=== PATIENT | female | born 1985 | race Caucasian/White ===

== ENCOUNTER 2018-04-20 22:15 | Emergency (ER) | payer OTHER ==
[2018-04-20] MEDS ORDERED: METOCLOPRAMIDE 10 MG/2mL INJ ONE (22:48)
[2018-04-20] MEDS ORDERED: KETOROLAC 30 MG/ML INJ ONE (22:49)
[2018-04-20] MEDS ORDERED: DIPHENHYDRAMINE 50 MG/ML VIAL ONE (22:49)
[2018-04-20] MEDS ORDERED: NA CHLORIDE 0.9% 1,000 ML ONE (22:49)
--- NOTE | 2018-04-20 23:21 | EDPHYS ---
Physician Documentation [facility] Name: Bethany Erazo Age: 32 yrs Sex: Female : 1985 Arrival Date: 04/20/2018 Time: 22:17 Bed 8 Private MD: ED Physician Adriel Krueger HPI: 04/20 22:45 This 32 yrs old Female presents to ER via Ambulatory with complaints of pm1 Vomiting, Headache. 22:45 The patient complains of pain to the forehead, right islam and left islam. The pm1 patient describes the headache as aching, constant. Onset: The symptoms/episode began/occurred 3 day(s) ago. 22:45 Associated signs and symptoms: Pertinent positives: nausea, vomiting, Pertinent pm1 negatives: altered mental status, Photophobia rash, vision changes. Severity of symptoms: in the emergency department the pain is unchanged. Headache History: The patient has had previous headaches and this one is similar to previous episodes. The symptoms are alleviated by nothing. The patient has experienced similar episodes in the past, a few times, and the symptoms today are exactly the same, to previous migraines. 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 - Social history:: Smoking status: Patient/guardian denies using tobacco, Patient uses alcohol, occasionally. Patient/guardian denies using street drugs. - Ebola Screening: : No symptoms or risks identified at this time. ROS: 22:45 Constitutional: Negative for fever, chills, and weight loss, Eyes: Negative for injury, pm1 pain, redness, and discharge, ENT: Negative for injury, pain, and discharge, Neck: Negative for injury, pain, and swelling, Cardiovascular: Negative for chest pain, palpitations, and edema, Respiratory: Negative for shortness of breath, cough, wheezing, and pleuritic chest pain, Back: Negative for injury and pain, : Negative for injury, bleeding, discharge, and swelling, MS/Extremity: Negative for injury and deformity. 22:45 Skin: Negative for injury, rash, and discoloration. 22:45 Abdomen/GI: Positive for nausea and vomiting, Negative for abdominal pain, diarrhea. 22:45 Neuro: Positive for headache, Negative for numbness, tingling. Exam: 22:45 Constitutional: This is a well developed, well nourished patient who is awake, alert, pm1 and in no acute distress. Head/Face: Normocephalic, atraumatic. Eyes: Pupils equal round and reactive to light, extra-ocular motions intact. Lids and lashes normal. Conjunctiva and sclera are non-icteric and not injected. Cornea within normal limits. Periorbital areas with no swelling, redness, or edema. ENT: Nares patent. No nasal discharge, no septal abnormalities noted. Tympanic membranes are normal and external auditory canals are clear. Oropharynx with no redness, swelling, or masses, exudates, or evidence of obstruction, uvula midline. Mucous membranes moist. Neck: Trachea midline, no thyromegaly or masses palpated, and no cervical lymphadenopathy. Supple, full range of motion without nuchal rigidity, or vertebral point tenderness. No Meningismus. Chest/axilla: Normal chest wall appearance and motion. Nontender with no deformity. No lesions are appreciated. Cardiovascular: Regular rate and rhythm with a normal S1 and S2. No gallops, murmurs, or rubs. Normal PMI, no JVD. No pulse deficits. Respiratory: Lungs have equal breath sounds bilaterally, clear to auscultation and percussion. No rales, rhonchi or wheezes noted. No increased work of breathing, no retractions or nasal flaring. Abdomen/GI: Soft, non-tender, with normal bowel sounds. No distension or tympany. No guarding or rebound. No evidence of tenderness throughout. Back: No spinal tenderness. No costovertebral tenderness. Full range of motion. Skin: Warm, dry with normal turgor. Normal color with no rashes, no lesions, and no evidence of cellulitis. MS/ Extremity: Pulses equal, no cyanosis. Neurovascular intact. Full, normal range of motion. 22:45 Neuro: Orientation: is normal, Mentation: is normal, Cranial nerves: CN II- XII are normal as tested, Cerebellar function: normal finger to nose testing, heel to martins testing is normal, Motor: moves all fours, Gait: is steady, at a normal pace, without difficulty. Vital Signs: 22:39 BP 113 / 73; Pulse 91; Resp 16 S; Temp 99(O); Pulse Ox 100% on R/A; Weight 57.61 kg bb (R); Height 5 ft. 3 in. (160.02 cm) (R); Pain 10/10; 23:40 BP 95 / 58; Pulse 96; Resp 16; Pulse Ox 100% on R/A; Pain 0/10; bb 22:39 Body Mass Index 22.50 (57.61 kg, 160.02 cm) bb MDM: 22:23 Patient medically screened. pm1 23:19 Data reviewed: vital signs. Data interpreted: Pulse oximetry: on room air is 100 %. pm1 Interpretation: normal. Counseling: I had a detailed discussion with the patient and/or guardian regarding: the historical points, exam findings, and any diagnostic results supporting the discharge/admit diagnosis, the need for outpatient follow up, a neurologist, to return to the emergency department if symptoms worsen or persist or if there are any questions or concerns that arise at home. 23:19 ED course: Patient's headache is completely resolved 0. pm1 04/20 22:29 Order name: IV Saline Lock; Complete Time: 22:37 pm1 Administered Medications: 22:49 Drug: TORadol 30 mg Route: IVP; Site: right antecubital; ea 23:45 Follow up: Response: Marked relief of symptoms bb 22:50 Drug: Benadryl 25 mg Route: IVP; Site: right antecubital; ea 23:45 Follow up: Response: Marked relief of symptoms bb 22:50 Drug: Reglan 10 mg Route: IVP; Site: right antecubital; ea 23:45 Follow up: Response: Marked relief of symptoms bb 22:50 Drug: NS 0.9% 1000 ml Route: IV; Rate: 1000 ml; Site: right antecubital; ea 23:45 Follow up: IV Status: Completed infusion; IV Intake: 1000ml bb Disposition: 04/21 02:50 Co-signature as Attending Physician, Adriel Krueger MD. ma2 Disposition: 04/20/18 23:20 Discharged to Home. Impression: Migraine. - Condition is Stable. - Discharge Instructions: Migraine Headache. - Prescriptions for Fiorinal 50- 325-40 mg Oral Capsule - take 1 capsule by ORAL route every 4 hours As needed - not to exceed 6 capsules per day; 20 capsule. Zofran 4 mg Oral Tablet - take 1 tablet by ORAL route every 12 hours As needed; 20 tablet. - Medication Reconciliation Form, Thank You Letter, Prescription Opioid Use form. - Follow up: Emergency Department; When: As needed; Reason: Worsening of condition. Follow up: Bright Edwards MD; When: 2 - 3 days; Reason: Recheck today's complaints, Continuance of care, Re-evaluation by your physician. - Problem is new. - Symptoms have improved. Signatures: Jhoana Londono RN RN Perfecto Blake NP DEDICATED DRIVER pm1 Cari Tam RN RN Adriel Bernal MD MD ma2 Corrections: (The following items were deleted from the chart) 04/20 23:46 23:20 04/20/2018 23:20 Discharged to Home. Impression: Migraine. Condition is Stable. bb Forms are Medication Reconciliation Form, Thank You Letter, Antibiotic Education, Prescription Opioid Use. Follow up: Emergency Department; When: As needed; Reason: Worsening of condition. Follow up: Bright Edwards; When: 2 - 3 days; Reason: Recheck today's complaints, Continuance of care, Re-evaluation by your physician. Problem is new. Symptoms have improved. pm1
--- NOTE | 2018-04-20 23:21 | ER ---
Nurse's Notes [facility] Name: Bethany Erazo Age: 32 yrs Sex: Female : 1985 Arrival Date: 04/20/2018 Time: 22:17 Bed 8 Private MD: Diagnosis: Migraine Presentation: 04/20 22:30 Presenting complaint: Patient states: she is having a migraine x 3 days unable to hold bb anything down has had migraines in the past but never for 3 days. Transition of care: patient was not received from another setting of care. Onset of symptoms was April 17, 2018. Risk Assessment: Do you want to hurt yourself or someone else? Patient reports no desire to harm self or others. Initial Sepsis Screen: Does the patient meet any 2 criteria? No. Patient's initial sepsis screen is negative. Does the patient have a suspected source of infection? No. Patient's initial sepsis screen is negative. Care prior to arrival: None. 22:30 Method Of Arrival: Ambulatory bb 22:30 Acuity: MARKUS 3 bb Triage Assessment: 22:39 General: Appears in no apparent distress. uncomfortable, Behavior is calm, cooperative. bb Pain: Complains of pain in head Pain currently is 10 out of 10 on a pain scale. Pain began 2-3 days ago. Is continuous. Neuro: Level of Consciousness is awake, alert, obeys commands, Oriented to person, place, time, situation, Speech is normal. Cardiovascular: No deficits noted. Respiratory: Respiratory effort is even, unlabored, Respiratory pattern is regular. GI: Abdomen is non-distended, Reports vomiting. : No signs and/or symptoms were reported regarding the genitourinary system. Derm: Skin is pink, warm \T\ dry. Musculoskeletal: Circulation, motion, and sensation intact. 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 - Social history:: Smoking status: Patient/guardian denies using tobacco, Patient uses alcohol, occasionally. Patient/guardian denies using street drugs. - Ebola Screening: : No symptoms or risks identified at this time. Screenin:34 Abuse screen: Denies threats or abuse. Nutritional screening: No deficits noted. ea Tuberculosis screening: No symptoms or risk factors identified. Fall Risk Assessment: 22:41 Reassessment: No changes from previously documented assessment. see triage assessment. bb 23:43 Reassessment: Patient and/or family updated on plan of care and expected duration. Pain bb level reassessed. Patient is alert, oriented x 3, equal unlabored respirations, skin warm/dry/pink. pt verbalized understanding of and agrees to plan of care discharge instructions given pt ambulated with steady gait to exit accompanied by family Patient states feeling better. Patient states symptoms have improved. Vital Signs: 22:39 BP 113 / 73; Pulse 91; Resp 16 S; Temp 99(O); Pulse Ox 100% on R/A; Weight 57.61 kg bb (R); Height 5 ft. 3 in. (160.02 cm) (R); Pain 10/10; 23:40 BP 95 / 58; Pulse 96; Resp 16; Pulse Ox 100% on R/A; Pain 0/10; bb 22:39 Body Mass Index 22.50 (57.61 kg, 160.02 cm) bb ED Course: 22:17 Patient arrived in ED. al2 22:22 Perfecto Barajas NP is PHCP. pm1 22:22 Adriel Krueger MD is Attending Physician. pm1 22:30 Jhoana Londono, CUCO is Primary Nurse. bb 22:34 Inserted saline lock: 20 gauge in right antecubital area, using aseptic technique. ea Blood collected. 22:37 Triage completed. bb 22:39 Arm band placed on Patient placed in an exam room, on a stretcher, on pulse oximetry. bb Family accompanied patient. 22:41 Patient has correct armband on for positive identification. Call light in reach. Side bb rails up X 1. Adult w/ patient. Pulse ox on. NIBP on. Door closed. Lights dimmed. Warm blanket given. 23:20 Bright Edwards MD is Referral Physician. pm1 23:44 No provider procedures requiring assistance completed. IV discontinued, intact, bb bleeding controlled, No redness/swelling at site. Pressure dressing applied. Administered Medications: 22:49 Drug: TORadol 30 mg Route: IVP; Site: right antecubital; ea 23:45 Follow up: Response: Marked relief of symptoms bb 22:50 Drug: Benadryl 25 mg Route: IVP; Site: right antecubital; ea 23:45 Follow up: Response: Marked relief of symptoms bb 22:50 Drug: Reglan 10 mg Route: IVP; Site: right antecubital; ea 23:45 Follow up: Response: Marked relief of symptoms bb 22:50 Drug: NS 0.9% 1000 ml Route: IV; Rate: 1000 ml; Site: right antecubital; ea 23:45 Follow up: IV Status: Completed infusion; IV Intake: 1000ml bb Intake: :45 IV: 1000ml; Total: 1000ml. bb Outcome: 23:20 Discharge ordered by MD. pm1 23:46 Discharged to home ambulatory, with family. bb 23:46 Condition: improved 23:46 Discharge instructions given to patient, Instructed on discharge instructions, follow up and referral plans. medication usage, Demonstrated understanding of instructions, follow-up care, medications, Prescriptions given X 2. 23:46 Patient left the ED. bb Signatures: Jhoana Londono RN RN bb Marinas, Patrick, NIKKI GEOLOGICAL SURVEY FIELD ASSISTANT pm1 Cari Tam RN RN ea Love, Angelica al2
== END 2018-04-20 23:46 | disposition home or self-care (01) ==
LOC: ER 22:15
DX: G43.909 Migraine, unspecified, not intractable, without status migrainosus (principal)
CPT/HCPCS: 96361; 96374; 96375; 99284; J2765; J7030

== ENCOUNTER 2018-05-21 21:16 | Emergency (ER) | payer OTHER, SELFPAY ==
[2018-05-21] MEDS ORDERED: METOCLOPRAMIDE 10 MG/2mL INJ ONE (22:17)
[2018-05-21] MEDS ORDERED: KETOROLAC 30 MG/ML INJ ONE (22:17)
[2018-05-21] MEDS ORDERED: DIPHENHYDRAMINE 50 MG/ML VIAL ONE (22:17)
[2018-05-21] MEDS ORDERED: NA CHLORIDE 0.9% 1,000 ML ONE (22:17)
--- NOTE | 2018-05-21 23:44 | ER ---
Nurse's Notes [facility] Name: Bethany Erazo Age: 32 yrs Sex: Female : 1985 Arrival Date: 05/21/2018 Time: 21:19 Bed 6 Private MD: Teri Calderon K Diagnosis: Migraine Presentation: 05/21 21:37 Presenting complaint: Patient states: she is having a severe migraine since yesterday bb and is unable to hold anything down. Transition of care: patient was not received from another setting of care. Onset of symptoms was May 20, 2018. Risk Assessment: Do you want to hurt yourself or someone else? Patient reports no desire to harm self or others. Initial Sepsis Screen: Does the patient meet any 2 criteria? No. Patient's initial sepsis screen is negative. Does the patient have a suspected source of infection? No. Patient's initial sepsis screen is negative. Care prior to arrival: None. 21:37 Method Of Arrival: Ambulatory bb 21:37 Acuity: MARKUS 3 bb Triage Assessment: 21:47 Headache History: The patient has had previous headaches and this one is similar to jd3 previous episodes. Pain: Pain currently is 10 out of 10 on a pain scale. Pain began gradually. 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 - Social history:: Smoking status: Patient/guardian denies using tobacco, Patient uses alcohol, occasionally. Patient/guardian denies using street drugs. - Ebola Screening: : No symptoms or risks identified at this time. Screenin:47 Abuse screen: Denies threats or abuse. Nutritional screening: No deficits noted. jd3 Tuberculosis screening: No symptoms or risk factors identified. Fall Risk Ambulatory Aid- None/Bed Rest/Nurse Assist (0 pts). Gait- Normal/Bed Rest/Wheelchair (0 pts) Mental Status- Oriented to own ability (0 pts). Total Adams Fall Scale indicates No Risk (0-24 pts). Assessment: 21:46 General: Appears in no apparent distress. uncomfortable, Behavior is calm, cooperative, jd3 appropriate for age. Pain: Complains of pain in head Quality of pain is described as sharp, Also complains of nausea. Neuro: Level of Consciousness is awake, alert, obeys commands, Oriented to person, place, time, situation, Pupils are PERRLA. Cardiovascular: Capillary refill < 3 seconds Patient's skin is warm and dry. Respiratory: Airway is patent Respiratory effort is even, unlabored, Respiratory pattern is regular, symmetrical. GI: Abdomen is round non-distended, Reports nausea, vomiting. : No signs and/or symptoms were reported regarding the genitourinary system. EENT: No signs and/or symptoms were reported regarding the EENT system. Derm: Skin is intact, Skin is dry, Skin is normal, Skin temperature is warm. Musculoskeletal: Circulation, motion, and sensation intact. Range of motion: intact in all extremities. 23:50 Reassessment: Patient appears in no apparent distress at this time. Patient and/or jd3 family updated on plan of care and expected duration. Pain level reassessed. Patient is alert, oriented x 3, equal unlabored respirations, skin warm/dry/pink. Patient states feeling better. Vital Signs: 21:40 BP 102 / 73; Pulse 68; Resp 16 S; Temp 97.9(O); Pulse Ox 96% on R/A; Weight 58.51 kg bb (R); Height 5 ft. 3 in. (160.02 cm) (R); Pain 10/10; 22:53 BP 98 / 66; Pulse 54; Resp 16; Pulse Ox 100% on R/A; mt 23:51 BP 91 / 64; Pulse 55; Resp 16 S; Pulse Ox 97% on R/A; jd3 21:40 Body Mass Index 22.85 (58.51 kg, 160.02 cm) bb ED Course: 21:19 Patient arrived in ED. am2 21:19 Teri Calderon MD is Private Physician. am2 21:39 Triage completed. bb 21:40 Arm band placed on Patient placed in an exam room, on a stretcher, on pulse oximetry. bb Family accompanied patient. 21:42 Nagi Fitzgerald RN is Primary Nurse. jd3 21:48 Patient has correct armband on for positive identification. Bed in low position. Call jd3 light in reach. Side rails up X 1. Adult w/ patient. 21:58 [facility] jr8 21:58 Emile Maier MD is Attending Physician. jr8 22:10 Inserted saline lock: 20 gauge in right antecubital area, using aseptic technique. mt Blood collected. 23:42 Bright Edwards MD is Referral Physician. jr8 23:50 No provider procedures requiring assistance completed. IV discontinued, intact, jd3 bleeding controlled, No redness/swelling at site. Pressure dressing applied. Administered Medications: 22:15 Drug: NS 0.9% 1000 ml Route: IV; Rate: 1000 ml; Site: left antecubital; aa1 23:52 Follow up: Response: No adverse reaction; IV Status: Completed infusion; IV Intake: jd3 1000ml 22:15 Drug: Reglan 10 mg Route: IVP; Site: right antecubital; aa1 23:52 Follow up: Response: No adverse reaction jd3 22:17 Drug: TORadol 30 mg Route: IVP; Site: right antecubital; aa1 23:53 Follow up: Response: No adverse reaction jd3 22:18 Drug: Benadryl 25 mg Route: IVP; Site: right antecubital; aa1 23:52 Follow up: Response: No adverse reaction jd3 Intake: 23:52 IV: 1000ml; Total: 1000ml. jd3 Outcome: 23:42 Discharge ordered by . jr8 23:51 Discharged to home ambulatory, with family. jd3 23:51 Condition: stable 23:51 Discharge instructions given to patient, family, Instructed on discharge instructions, follow up and referral plans. Demonstrated understanding of instructions, follow-up care. 23:53 Patient left the ED. jd3 Signatures: Cheryle Díaz RN RN aa1 Jhoana Londono RN RN bb Zachery Delgado PA PA jr8 Nika Mota amTonya Montgomery mt, Jonathon, RN RN jkim
--- NOTE | 2018-05-21 23:44 | EDPHYS ---
Physician Documentation [facility] Name: Bethany Erazo Age: 32 yrs Sex: Female : 1985 Arrival Date: 05/21/2018 Time: 21:19 Bed 6 Private MD: Teri Calderon K ED Physician Emile Maier HPI: 05/21 22:09 This 32 yrs old Female presents to ER via Ambulatory with complaints of jr8 Headache, Nausea/Vomiting. 22:09 The patient complains of pain to the forehead. Onset: The symptoms/episode jr8 began/occurred acutely, yesterday. Associated signs and symptoms: Pertinent positives: nausea, Photophobia vomiting. Severity of symptoms: At its worst the pain was moderate, in the emergency department the pain is unchanged. Headache History: The patient has had previous headaches and this one is similar to previous episodes. The symptoms are alleviated by nothing. the symptoms are aggravated by lights, movement, noise. The patient has experienced similar episodes in the past, a few times. The patient has not recently seen a physician. has been out of her Topamax but has it ready at pharmacy . 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 - Social history:: Smoking status: Patient/guardian denies using tobacco, Patient uses alcohol, occasionally. Patient/guardian denies using street drugs. - Ebola Screening: : No symptoms or risks identified at this time. ROS: 22:09 Eyes: Negative for injury, pain, redness, and discharge, ENT: Negative for injury, jr8 pain, and discharge, Neck: Negative for injury, pain, and swelling, Cardiovascular: Negative for chest pain, palpitations, and edema, Respiratory: Negative for shortness of breath, cough, wheezing, and pleuritic chest pain, Back: Negative for injury and pain, MS/Extremity: Negative for injury and deformity, Skin: Negative for injury, rash, and discoloration. 22:09 Abdomen/GI: Positive for nausea and vomiting, Negative for abdominal pain, diarrhea, constipation, abdominal cramps, abdominal distension. 22:09 Neuro: Positive for headache, Negative for altered mental status, dizziness, gait disturbance, hearing loss, loss of consciousness, numbness, seizure activity, speech changes, syncope, near syncope, tingling, tinnitus, tremor, visual changes, weakness. Exam: 22:09 Eyes: Pupils equal round and reactive to light, extra-ocular motions intact. Lids and jr8 lashes normal. Conjunctiva and sclera are non-icteric and not injected. Cornea within normal limits. Periorbital areas with no swelling, redness, or edema. ENT: Nares patent. No nasal discharge, no septal abnormalities noted. Tympanic membranes are normal and external auditory canals are clear. Oropharynx with no redness, swelling, or masses, exudates, or evidence of obstruction, uvula midline. Mucous membranes moist. Neck: Trachea midline, no thyromegaly or masses palpated, and no cervical lymphadenopathy. Supple, full range of motion without nuchal rigidity, or vertebral point tenderness. No Meningismus. Cardiovascular: Regular rate and rhythm with a normal S1 and S2. No gallops, murmurs, or rubs. Normal PMI, no JVD. No pulse deficits. Respiratory: Lungs have equal breath sounds bilaterally, clear to auscultation and percussion. No rales, rhonchi or wheezes noted. No increased work of breathing, no retractions or nasal flaring. Abdomen/GI: Soft, non-tender, with normal bowel sounds. No distension or tympany. No guarding or rebound. No evidence of tenderness throughout. Back: No spinal tenderness. No costovertebral tenderness. Full range of motion. Skin: Warm, dry with normal turgor. Normal color with no rashes, no lesions, and no evidence of cellulitis. MS/ Extremity: Pulses equal, no cyanosis. Neurovascular intact. Full, normal range of motion. Neuro: Awake and alert, GCS 15, oriented to person, place, time, and situation. Cranial nerves II-XII grossly intact. Motor strength 5/5 in all extremities. Sensory grossly intact. Cerebellar exam normal. Normal gait. Vital Signs: 21:40 BP 102 / 73; Pulse 68; Resp 16 S; Temp 97.9(O); Pulse Ox 96% on R/A; Weight 58.51 kg bb (R); Height 5 ft. 3 in. (160.02 cm) (R); Pain 10/10; 22:53 BP 98 / 66; Pulse 54; Resp 16; Pulse Ox 100% on R/A; mt 23:51 BP 91 / 64; Pulse 55; Resp 16 S; Pulse Ox 97% on R/A; jd3 21:40 Body Mass Index 22.85 (58.51 kg, 160.02 cm) bb MDM: 21:58 Patient medically screened. jr8 23:41 Data reviewed: vital signs, nurses notes, and as a result, I will discharge patient. jr8 Data interpreted: Pulse oximetry: on room air is 100 %. Interpretation: normal. Counseling: I had a detailed discussion with the patient and/or guardian regarding: the historical points, exam findings, and any diagnostic results supporting the discharge/admit diagnosis, the need for outpatient follow up, a neurologist, to return to the emergency department if symptoms worsen or persist or if there are any questions or concerns that arise at home. Response to treatment: the patient's symptoms have markedly improved after treatment, patient is well hydrated. 05/21 22:03 Order name: IV; Complete Time: 22:22 jr8 Administered Medications: 22:15 Drug: NS 0.9% 1000 ml Route: IV; Rate: 1000 ml; Site: left antecubital; aa1 23:52 Follow up: Response: No adverse reaction; IV Status: Completed infusion; IV Intake: jd3 1000ml 22:15 Drug: Reglan 10 mg Route: IVP; Site: right antecubital; aa1 23:52 Follow up: Response: No adverse reaction jd3 22:17 Drug: TORadol 30 mg Route: IVP; Site: right antecubital; aa1 23:53 Follow up: Response: No adverse reaction jd3 22:18 Drug: Benadryl 25 mg Route: IVP; Site: right antecubital; aa1 23:52 Follow up: Response: No adverse reaction jd3 Disposition: 05/22 22:33 Co-signature as Attending Physician, Emile Maier MD I agree with the assessment and tw4 plan of care. Disposition: 05/21/18 23:42 Discharged to Home. Impression: Migraine. - Condition is Stable. - Discharge Instructions: Migraine Headache. - Medication Reconciliation Form, Thank You Letter, Antibiotic Education, Prescription Opioid Use form. - Follow up: Bright Edwards MD; When: 2 - 3 days; Reason: Recheck today's complaints, Continuance of care, Re-evaluation by your physician. - Problem is new. - Symptoms have improved. Signatures: Cheryle Díaz RN RN aa1 Jhoana Londono RN RN bb Zachery Delgado PA PA jr8 Nagi Fitzgerald RN RN jd3 Emile Maier MD MD tw4 Corrections: (The following items were deleted from the chart) 05/21 23:53 23:42 05/21/2018 23:42 Discharged to Home. Impression: Migraine. Condition is Stable. jd3 Forms are Medication Reconciliation Form, Thank You Letter, Antibiotic Education, Prescription Opioid Use. Follow up: Bright Edwards; When: 2 - 3 days; Reason: Recheck today's complaints, Continuance of care, Re-evaluation by your physician. Problem is new. Symptoms have improved. jr8
== END 2018-05-21 23:53 | disposition home or self-care (01) ==
LOC: ER 21:16
DX: G43.909 Migraine, unspecified, not intractable, without status migrainosus (principal)
CPT/HCPCS: 96361; 96374; 96375; 99284; J2765; J7030

== ENCOUNTER 2019-07-02 22:46 | Inpatient (IN) | payer OTHER ==
--- OUTSIDE RECORDS SUMMARY | 2019-07-02 22:50 | XMS REPORT ---
:1985 [facility] Address [address] [place] [address] Dr. Sandoval [address] [place] [id number] Care Team Providers Name Role Phone Unavailable Unavailable Unavailable Problems This patient has no known problems. Allergies, Adverse Reactions, Alerts This patient has no known allergies or adverse reactions. Medications This patient has no known medications.
[2019-07-03] MEDS ORDERED: Ringers Lactate 1,000 ML IV ONE ×2 (01:35→09:32)
[2019-07-03 01:51] VITALS: BMI 36.8
[2019-07-03] MEDS ORDERED: PENICILLIN 5 MU in NA CHLORIDE 0.9% 100 ML IV ONE (02:11)
[2019-07-03] MEDS ORDERED: METHYLERGONOVINE 0.2MG/ML AMP IM PRN (02:11)
[2019-07-03] MEDS ORDERED: Ringers Lactate 1,000 ML IV PRN (02:11)
[2019-07-03] MEDS ORDERED: CARBOPROST TROME 250 MCG/ML IM PRN (02:11)
[2019-07-03 02:38] LABS: Absolute Lymphocytes (CBC) 2.2 K/uL (0.7-4.9); Basophils % 0.1 % (0-1.3); Hematocrit 33.6 % (36.0-45.0); Lymphocytes % 9.3 % (15.3-44.8); MPV 7.6 fL (7.6-11.3); RBC Red Blood Cell Count 3.59 M/uL (3.86-4.86)
[2019-07-03] MEDS ORDERED: BUTORPHANOL 1 MG/ML INJ IV ONE (02:59)
[2019-07-03] MEDS ORDERED: PROMETHAZINE INJ 25 MG/ML AMP IM ONE (02:59)
[2019-07-03] MEDS ORDERED: Ringers Lactate 1,000 ML IV SCH (03:00)
[2019-07-03 03:06] LABS: RPR (Rapid Plasma Reagin) NON-REACT (NON-REACT)
[2019-07-03 03:37] LABS: Blood Morphology Comment NOT SEEN (NOT SEEN); Platelet Estimate ADEQ
[2019-07-03] MEDS ORDERED: PENICILLIN G POT 5 MU/VIAL IV ONE (04:29)
[2019-07-03] MEDS ORDERED: NA CHLORIDE 0.9% 100 ML IV ONE (04:30)
[2019-07-03] MEDS ORDERED: PENICILLIN 2.5 MU in NA CHLORIDE 0.9% 100 ML IV SCH (05:00)
[2019-07-03] MEDS ORDERED: OXYTOCIN/LR 20 UNIT/1,000 ML BAG IV ONE (06:17)
[2019-07-03] MEDS ORDERED: OXYTOCIN/LR 20 UNIT/1,000 ML BAG IV SCH ×2 (07:00→09:00)
[2019-07-03] MEDS ORDERED: FAMOTIDINE 20 MG/2 ML VIAL IV ONE (07:10)
[2019-07-03] MEDS ORDERED: NA CIT/CITRIC AC 30 ML ORAL UDC ONE (07:10)
[2019-07-03] MEDS ORDERED: METOCLOPRAMIDE 10 MG/2mL INJ ONE (07:11)
[2019-07-03] MEDS ORDERED: MORPHINE SULFATE/PF 1 MG/ML (10 ML AMP) ONE (07:11)
[2019-07-03] MEDS ORDERED: EPHEDRINE SULF 50 MG/ML VIAL ONE (07:12)
[2019-07-03] MEDS ORDERED: OXYTOCIN 10 UNIT/ML ML IV ONE (07:13)
[2019-07-03] MEDS ORDERED: NS 0.9% VIAL 10 ML ONE (07:13)
[2019-07-03] MEDS ORDERED: LIDOCAINE 1% MPF 5 ML VIAL ONE (07:17)
[2019-07-03] MEDS ORDERED: CEFAZOLIN/SWI 2gm 2 GM/20 ML SYR IV ONE (07:24)
[2019-07-03] MEDS ORDERED: CEFAZOLIN/SWI 2gm 2 GM/20 ML SYR ONE (07:24)
[2019-07-03] MEDS ORDERED: BUPIVACAINE 0.75% (PF) 2 ML SP ONE (07:41)
[2019-07-03] MEDS ORDERED: Phenylephrine HCl 10 MG/ML 1 ML VIAL ONE (07:41)
[2019-07-03] MEDS ORDERED: NS 0.9% VIAL 20 ML ONE (07:42)
--- NOTE | 2019-07-03 07:45 | PREOPHP ---
Date of Admission: 07/03/2019 33-year-old primigravida, now at 35 weeks and 6 days, came in with possible rupture of membranes and in early labor. Has progressed to 8 cm when the nurses discovered the baby is ashly breech. Discuss ion with patient and family, we have decided to proceed with section. Anesthesia is here. We are preparing to go to the back. Infection, blood loss, anesthetic complications, injury to bladd er, bowel, ureter, postoperative complications have been discussed. Patient is Rh positive, immune t o Rubella. Negative beta strep screen although she has been started on Celestone. She had Celestone earlier in the and has been started on penicillin prophylaxis, says that could be possibly prolonged rupture of membranes. Baby looks excellent. There is no change in family or personal his tory. Heart and lungs are clear. We will proceed expeditiously to operative delivery. RAHUL/GISSELLE Voice ID: [id number]
[2019-07-03] MEDS ORDERED: MIDAZOLAM HCL 2 MG/2 ML INJ ONE (07:51)
[2019-07-03] MEDS ORDERED: INFLUENZA VACCINE (for 3y+) 0.5 ML DOSE IMVAC ONE (08:00)
[2019-07-03] MEDS ORDERED: KETOROLAC 30 MG/ML INJ IV PRN (08:29)
[2019-07-03] MEDS ORDERED: DIPHENHYDRAMINE 25 MG TAB/CAP PO PRN (08:29)
[2019-07-03] MEDS ORDERED: BISACODYL 10 MG RECTAL SUPP RECT PRN (08:29)
[2019-07-03] MEDS ORDERED: ACETAMINOPHEN 500 MG TAB PO PRN ×2 (08:29)
[2019-07-03] MEDS ORDERED: ONDANSETRON 4 MG (ODT) TAB PO PRN (08:29)
[2019-07-03] MEDS ORDERED: KETOROLAC 30 MG/ML INJ IM PRN (08:29)
[2019-07-03] MEDS ORDERED: ONDANSETRON 4 MG/2 ML VIAL IV PRN (08:29)
[2019-07-03] MEDS ORDERED: Oxycodone HCl/Acetaminophen 1 TAB TAB PO PRN ×2 (08:29)
--- NOTE | 2019-07-03 10:24 | RAD REPORT ---
EXAM DESCRIPTION: RAD - Urograph (IVP) - 07/03/2019 10:10 am CLINICAL HISTORY: Concern for left ureter post op COMPARISON: No relevant comparison TECHNIQUE: KUB images obtained. Patient was administered nonionic IV contrast 100 milliliters. After an minute delay multiple AP and oblique views of the abdomen and pelvis obtained. FINDINGS: Pulping Machine Operator image shows a large amount of stool filling but not dilating the colon. Skin thalia are present from recent . No abnormal calcification or abnormal air collection. Kidney detail is limited due to the large amount of stool. Contrast extends into nondilated pelves an d calices. Both ureters are well visualized with no dilatation. There is no extravasation of contrast . No finding that would suggest significant injury to the left ureter. Contrast opacifies the urinary bladder. Gant catheter is in place. IMPRESSION: No extravasation of contrast. No evidence for injury to the nondilated left ureter.
[2019-07-03] MEDS: D5LR 1,000 ML with OXYTOCIN 20 UNIT IV SCH ×2 (12:39)
[2019-07-03] MEDS: IBUPROFEN 600 MG TAB PO PRN (16:15)
[2019-07-03] MEDS ORDERED: CEFAZOLIN/SWI 1gm 1 GM/10 ML SYR IV ONE (16:30)
--- NOTE | 2019-07-03 18:38 | OP ---
Surgeon: Matt Nazario MD Formula Weigher: Dr. Parekh, senior agricultural assistant surgeon. Anesthesiologist: Dr. Fournier Indication: A 33-year-old primigravida, 35 weeks 6 days. Noted to have early dilation and effacemen t in the office and therefore 10-12 days ago was given Celestone 2 doses. Came in with possible rupt ure of membranes, negative test, was sent home. Came back with definite rupture of membranes in laura y labor. Progressed to labor to about 7-8 cm, which was noted to be ashly breech. Discussion with t he family at that time. Offered vaginal delivery, but family chose to proceed with section. Infection, blood loss, anesthetic complications, injury to bladder, bowel, ureter, postoperative co mplications, clots in legs, and pneumonia discussed. Patient knows fully well. This does not consti tute all the possible problems that could occur during or following surgery. Came in with admission white count of 23,000. During the labor, no signs of amnionitis, no fever, no tachycardia, no uterine tenderness, and no bad odor. Nonetheless, she was started on penicillin prophylaxis and rece ived at least 2 doses possibly 3 during the labor, was given 2 g of Ancef for prophylaxis prior to th e surgery. Anesthesia: Spinal block. Description Of Procedure: After prepping and draping, and timeout was performed, a Pfannenstiel inci mouna was created. The incision was carried to the fascia. Fascia was incised and incision carried t ransversely bilaterally. Anterior fascial plane was developed with both blunt and sharp dissection, underlying rectus muscle was . Peritoneum entered bluntly. Low transverse uterine incision created. A 4 pounds 13 ounces male delivered without difficulties. Apgars 9 and 9. Cord blood spe cimen was obtained. Placenta was removed manually. Uterus cleared of clot and blood and exteriorize d. Uterus closed with a running locked stitch of 1 chromic followed by 4 [id number] stitches in the right angle, 3 in the left angle for complete hemostasis. Estimated blood loss 900 cc during th e procedure. Gutters cleared of clot and blood. Uterus was replaced in the peritoneal cavity. Rein spection of suture line showed no further bleeding. Muscles reapproximated with 0 Vicryl 3 interrupt ed sutures. Fascia closed with 1 Vicryl running locked to the midline on either side. Subcutaneous tissue closed with 2-0 plain. Absorbable thalia placed and then metal thalia. Patient tolerated a ll procedures well, was transferred back to her room in good condition. Final Diagnoses: Intrauterine gestation, 35 weeks 6 days, premature rupture of membranes, primary ce sarean section, spinal block anesthesia. Celestone at approximately 34 weeks gestation given. RAHUL/GISSELLE Voice ID: [id number] Report ID: [id number]
[2019-07-04] MEDS: D5LR 1,000 ML with OXYTOCIN 20 UNIT IV SCH ×2 (04:30)
[2019-07-04] MEDS ORDERED: Ringers Lactate 1,000 ML IV ONE (07:25)
[2019-07-04] MEDS: MAGNESIUM HYDROXIDE 8% 30 ML PO PRN ×2 (08:00→14:04)
[2019-07-04] MEDS ORDERED: Ringers Lactate 1,000 ML IV SCH (08:00)
[2019-07-04] MEDS: IBUPROFEN 600 MG TAB PO PRN ×3 (08:01→19:30)
[2019-07-04] MEDS ORDERED: FERROUS SULFATE 325 MG TAB PO ONE (08:24)
--- NOTE | 2019-07-04 08:27 | PN ---
Postoperatively, urine was slightly concentrated. We will hydrate before we discontinue the IV. Elizabet chen is lethargic this morning as she has had 2 Percocets and a Benadryl. We will try to get him swi tch to Motrin if possible. We will not ambulate the patient although we will sit her beside the bed until she is more fully alert. H and H with expected change. Lochia is normal. Vital signs are goo d. If all goes well, we will send her home tomorrow. Full dismissal instructions given but will go over again tomorrow. present, so he can go over with the patient but we went over this yesenia artis as is I think she may have some problems with remembering this since she is drowsy this morning. No complaints or problems. IVP yesterday showed no problems with the left side. RAHUL/GISSELLE Voice ID: [id number] Report ID: [id number]
--- NOTE | 2019-07-04 08:27 | PN ---
At the time of surgery stitch ikxuiz-ih-zvnse was placed on the left side close to a fairly large blo od vessel and again did get a 1 shot IVP to make sure there are no problems with the ureter on that s sulma. Full discussion with family. RAHUL/GISSELLE Voice ID: [id number] Report ID: [id number]
[2019-07-05] MEDS: MAGNESIUM HYDROXIDE 8% 30 ML PO PRN (07:12)
[2019-07-05 07:45] VITALS: BP 139/82; TEMP 97.8
--- NOTE | 2019-07-05 08:17 | DS ---
33-year-old primigravida, 35 weeks 6 days, noted to have early dilation and effacement, therefore was given Celestone at 2 doses at approximately 34-1/2 to 35 weeks. Subsequently, at 35 weeks and 6 day s, experienced spontaneous rupture of membranes, came in, in early labor, was noted after she got to be 7 to 8 cm to be ashly breech. At that time, discussion with patient and family was decided procee d with section. section was performed under spinal block anesthesia. Delivery of a 4 pound 13 ounce male , Apgars 9 and 9. 900 mL blood loss. IVP later to ensure left ureter was normal and it was. Patient has been afebrile, ambulating, voiding, lochia has been normal. She has not had a bowel movement. We have given her stimulants and if she has not had a bowel movement b y tomorrow we will give her GoLYTELY. She is Rh positive, immune to Rubella. Dismissed with tramado l for analgesia. No complaints or problems this morning. She has had her Tdap immunization. Final Diagnoses: Intrauterine gestation, 35 weeks 6 days, premature labor, ashly breech, primary irais arean section, spinal block anesthesia. RAHUL/GISSELLE Voice ID: [id number] Report ID: [id number]
[2019-07-05] MEDS ORDERED: INFLUENZA VACCINE (for 3y+) 0.5 ML DOSE IMVAC ONE (09:24)
[2019-07-05] MEDS ORDERED: Tdap (Diph,Pertuss(Acell),Tet Vac) 0.5 ML SYR IMVAC ONE (09:24)
[2019-07-06 21:05] LABS: HBsAG Nonreactive (Nonreactive)
== END 2019-07-05 11:03 | disposition home or self-care (01) | DRG 788 ==
LOC: L&D 22:46 → 2ND-WC 07-03 01:23
PROVIDERS: ADMIT Specialist; ATTEND Specialist
PROC: 10D00Z1 Extraction of Products of Conception, Low, Open Approach (ICD-10-PCS; principal; 2019-07-03 07:41)
DX: O60.14X0 Preterm labor third trimester with preterm delivery third trimester, not applicable or unspecified (principal); O32.1XX0 Maternal care for breech presentation, not applicable or unspecified; O42.013 Preterm premature rupture of membranes, onset of labor within 24 hours of rupture, third trimester; Z3A.35 35 weeks gestation of pregnancy; Z37.0 Single live birth; Z23 Encounter for immunization
CPT/HCPCS: 36415; 74400; 85014; 85025; 86592; 86850; 86900; 86901; 87340; 88307; 90471; 90715; J0595; J0690; J2250; J2370; J2550; J2590; J2765; J7120; J7121; Q2035; Q9967